=== PATIENT | female | born 1980 | race Caucasian/White ===

== ENCOUNTER 2019-06-06 13:32 | Emergency (ER) | payer BC ==
[2019-06-06 13:49] VITALS: BP 105/62
--- NOTE | 2019-06-06 14:32 | UC ---
Respiratory Complaint HPI - HPI Summary HPI Summary: Patient is a 30-year-old female presenting with chest congestion that began on Tuesday. Symptoms began with body aches, fever, chills, and nasal congestion with postnasal drip. Patient states all symptoms have subsided except for chest congestion, low-grade fever, and newly developed cough since yesterday. States cough is dry. Denies wheezing. Denies sore throat. Denies decreased appetite and fluid intake. Patient states she is mostly bothered by the shortness of breath and chest tightness she experiences with exertion. Denies shortness of breath at rest. She is taking Mucinex for symptom relief. - History of Current Complaint Chief Complaint: UCRespiratory Stated Complaint: CHEST CONGESTION Hx Obtained From: Patient Hx Last Menstrual Period: 07/23/16 Onset/Duration: Gradual Onset, Lasting Days Pain Intensity: 4 - Allergies/Home Medications Allergies/Adverse Reactions: Allergies Allergy/AdvReac Type Severity Reaction Status Date / Time Penicillins Allergy Rash Verified 06/06/19 13:49 shellfish derived Allergy See Comment Verified 06/06/19 13:49 Home Medications: Home Medications Norgestimate-Ethinyl Estradiol [Norg-Ee 0.18-0.215-0.25/0.025] 1 each PO DAILY 06/06/19 [History Confirmed 06/06/19] PMH/Surg Hx/FS Hx/Imm Hx Previously Healthy: Yes - Surgical History Surgical History: None - Family History Known Family History: Positive: Hypertension, Renal Disease - AUNT GRANDMOTHER KIDNEY STONES - Social History Alcohol Use: Rare Substance Use Type: None Smoking Status (MU): Never Smoked Tobacco - Immunization History Most Recent Influenza Vaccination: Fall 2014 Most Recent Tetanus Shot: 2011 Most Recent Pneumonia Vaccination: none Review of Systems All Other Systems Reviewed And Are Negative: Yes Constitutional: Positive: Fever, Chills ENT: Positive: Nasal Discharge, Sinus Congestion. Negative: Sore Throat, Ear Ache Respiratory: Positive: Shortness Of Breath, Cough Cardiovascular: Positive: Negative. Negative: Palpitations, Chest Pain Gastrointestinal: Positive: Negative. Negative: Abdominal Pain, Vomiting, Nausea Musculoskeletal: Positive: Myalgia Neurological: Positive: Negative Physical Exam Triage Information Reviewed: Yes Appearance: Well-Appearing, No Pain Distress, Well-Nourished Vital Signs: Initial Vital Signs Temp 99.8 F 06/06/19 13:45 Pulse 69 06/06/19 13:45 Resp 18 06/06/19 13:45 BP 105/62 06/06/19 13:45 Pulse Ox 100 06/06/19 13:45 Vital Signs Reviewed: Yes Eyes: Positive: Conjunctiva Clear ENT: Positive: Hearing grossly normal, Pharyngeal erythema, Nasal drainage - Postnasal drip noted, TMs normal, Uvula midline. Negative: Nasal congestion, Tonsillar swelling, Tonsillar exudate, Sinus tenderness Neck exam: Normal Neck: Positive: Supple, Nontender, No Lymphadenopathy Respiratory Exam: Normal Respiratory: Positive: Lungs clear, Normal breath sounds, No respiratory distress. Negative: Crackles, Rhonchi, Stridor, Wheezing Cardiovascular Exam: Normal Cardiovascular: Positive: RRR Neurological: Positive: Alert Psychological: Positive: Age Appropriate Behavior Respiratory Course/Dx - Course Course Of Treatment: Patient's vital signs normal and lung sounds clear. Discussed symptomatic treatment for congestion and use of albuterol inhaler to help relieve shortness of breath. Instructed to follow-up with [facility] or physician referral if symptoms worse. Instructed to go to ED if they worsen. Patient voiced understanding and agreed with the treatment plan. - Differential Dx/Diagnosis Provider Diagnosis: Acute bronchitis, Feeling of chest tightness Discharge ED - Sign-Out/Discharge Documenting (check all that apply): Patient Departure All imaging exams completed and their final reports reviewed: No Studies - Discharge Plan Condition: Stable Disposition: HOME Prescriptions: Albuterol HFA INHALER* [Ventolin HFA Inhaler*] 1 - 2 puff INH Q4H PRN #1 mdi PRN Reason: Shortness Of Breath Patient Education Materials: Acute Bronchitis (ED), How to Use a Metered-Dose Inhaler (ED) Referrals: [facility] [Outside] - If Needed [facility] [facility] [Outside] - If Needed Additional Instructions: As discussed, your congestion is most likely caused by a virus. Use the albuterol inhaler as prescribed to help relieve your shortness of breath. You may take mucinex as directed to help reduce mucus production. You may take tylenol and ibuprofen as directed for fever and pain relief. Get plenty of rest and fluids. Follow up with the [facility] or Physician Referral listed below if your symptoms do not resolve within 10 days. Code to the emergency room if he would experience fever higher than 102, nausea , vomiting, or worsening difficulty breathing. - Billing Disposition and Condition Condition: STABLE Disposition: Home
== END 2019-06-06 14:56 | disposition home or self-care (01) ==
LOC: UCEAST 13:32
DX: J20.9 Acute bronchitis, unspecified (principal); R07.89 Other chest pain; Z88.0 Allergy status to penicillin; Z91.013 Allergy to seafood
CPT/HCPCS: 99212; G0463